=== PATIENT | male | born 1995 | race Caucasian/White ===

== ENCOUNTER 2017-05-12 09:57 | Day surgery (SDC) | payer OTHER ==
[2017-05-12] MEDS ORDERED: CEFAZOLIN 2 GM/50 ML (PMX) 50 ML IVPB (12:30)
[2017-05-12] MEDS ORDERED: FENTAnyl 50 MCG/ML VIAL ×2 (13:09→13:29)
[2017-05-12] MEDS ORDERED: ROCURONIUM 50 MG INJ (13:09)
[2017-05-12] MEDS ORDERED: PROPOFOL 20 ML (13:09)
[2017-05-12] MEDS ORDERED: MIDAZOLAM 1 MG/ML 2 ML INJ (13:09)
[2017-05-12] MEDS ORDERED: LIDOCAINE 1% (MDV) 20 ML INJ (13:10)
[2017-05-12] MEDS ORDERED: CEFAZOLIN 1 GM INJ (13:20)
[2017-05-12] MEDS: BUPIVACAINE 0.5% (SDV) 30 ML INJ (13:56)
[2017-05-12] MEDS ORDERED: SUGAMMADEX SODIUM 200 MG/2 ML VIAL IV (13:58)
[2017-05-12] MEDS ORDERED: ONDANSETRON 4 MG INJ (14:00)
[2017-05-12] MEDS ORDERED: MEPERIDINE 25 MG INJ IV (14:30)
[2017-05-12] MEDS: MEPERIDINE 50 MG INJ IV (14:34)
[2017-05-12] MEDS: ONDANSETRON 4 MG INJ IV (14:35)
[2017-05-12] MEDS: HYDROCODONE/APAP (5/325) TAB PO (15:15)
== END 2017-05-12 15:53 | disposition home or self-care (01) ==
LOC: SDS 09:57
DX: I86.1 Scrotal varices (principal)
CPT/HCPCS: 55530; 88305